=== PATIENT | male | born 1980 | race Hispanic/Latino ===

== ENCOUNTER 2019-03-02 14:49 | Emergency (ER) | payer SELFPAY ==
[2019-03-02] MEDS ORDERED: ASPIRIN 81 MG CHEWABLE TABLET ONE (15:16)
[2019-03-02 15:34] LABS: Absolute Lymphocytes (CBC) 1.9 K/uL (0.7-4.9); Basophils % 0.8 % (0-1.3); Hematocrit 47.3 % (39.6-49.0); Lymphocytes % 28.7 % (15.3-44.8); MPV 8.7 fL (7.6-11.3); Protime INR 0.97; RBC Red Blood Cell Count 5.27 M/uL (4.33-5.43)
--- NOTE | 2019-03-02 15:38 | RAD REPORT ---
EXAM DESCRIPTION: RAD - Chest Single View - 03/02/2019 3:22 pm CLINICAL HISTORY: Chest pain COMPARISON: None. TECHNIQUE: AP portable chest image was obtained 1519 hours . FINDINGS: Lungs are underinflated but clear. No failure or volume overload. Heart and vasculature ar e normal. No measurable pleural effusion and no pneumothorax. No acute bony abnormality seen. No acut e aortic findings suspected. IMPRESSION: No acute cardiopulmonary process.
[2019-03-02 15:54] LABS: ALT/SGPT 58 U/L (12-78); AST/SGOT 36 U/L (15-37); Albumin 3.9 g/dL (3.4-5.0); Alkaline Phosphatase 81 U/L (45-117); BUN Blood Urea Nitrogen 15 mg/dL (7-18); Bicarbonate 27 mmol/L (21-32); Bilirubin Direct 0.1 mg/dL (0-0.2); Bilirubin Total 0.5 mg/dL (0.2-1.0); Glucose Level 109 mg/dL (74-106); Magnesium 2.1 mg/dL (1.8-2.4); NT PRO-BNP 14 pg/mL (<125); Protein, Total 7.1 g/dL (6.4-8.2); Sodium Level 140 mmol/L (136-145); Troponin (Emerg Dept Use Only) < 0.02 ng/mL (0.0-0.045)
--- NOTE | 2019-03-02 16:11 | EDPHYS ---
Physician Documentation [facility] Name: Mike Boswell Age: 38 yrs Sex: Male : 1980 Arrival Date: 03/02/2019 Time: 14:50 Bed 2 Private MD: ED Physician Samuel Jarvis HPI: 03/02 15:22 This 38 yrs old Male presents to ER via Ambulatory with complaints of Chest jr8 Pain. 15:22 Onset: The symptoms/episode began/occurred 1.5 week(s) ago. Associated signs and jr8 symptoms: Pertinent negatives: abdominal pain, congestion, cough, headache, sore throat. Modifying factors: The patient symptoms are alleviated by nothing, the patient symptoms are aggravated by nothing. The patient has not experienced similar symptoms in the past. Pt reports left sided chest pain for the last 1.5 weeks, some days worse than other. Today pain is rated at a 6/10. Denies smoking, cardiac history, or diabetes. Historical: - Allergies: 15:06 No Known Allergies; ss - Home Meds: 15:06 None [Active]; ss - PMHx: 15:06 None; ss - PSHx: 15:06 None; ss - Immunization history:: Adult Immunizations unknown. - Social history:: Smoking status: Patient/guardian denies using tobacco. - Ebola Screening: : Patient denies exposure to infectious person Patient denies travel to an Ebola-affected area in the 21 days before illness onset. ROS: 15:23 Constitutional: Negative for fever, chills, and weight loss, Eyes: Negative for injury, jr8 pain, redness, and discharge, ENT: Negative for injury, pain, and discharge, Neck: Negative for injury, pain, and swelling, Respiratory: Negative for shortness of breath, cough, wheezing, and pleuritic chest pain, Abdomen/GI: Negative for abdominal pain, nausea, vomiting, diarrhea, and constipation, Back: Negative for injury and pain, Skin: Negative for injury, rash, and discoloration, Neuro: Negative for headache, weakness, numbness, tingling, and seizure. 15:23 Cardiovascular: Positive for chest pain. Exam: 15:24 Constitutional: This is a well developed, well nourished patient who is awake, alert, jr8 and in no acute distress. Head/Face: Normocephalic, atraumatic. Eyes: Pupils equal round and reactive to light, extra-ocular motions intact. Lids and lashes normal. Conjunctiva and sclera are non-icteric and not injected. Cornea within normal limits. Periorbital areas with no swelling, redness, or edema. ENT: Nares patent. No nasal discharge, no septal abnormalities noted. Tympanic membranes are normal and external auditory canals are clear. Oropharynx with no redness, swelling, or masses, exudates, or evidence of obstruction, uvula midline. Mucous membranes moist. Neck: Trachea midline, no thyromegaly or masses palpated, and no cervical lymphadenopathy. Supple, full range of motion without nuchal rigidity, or vertebral point tenderness. No Meningismus. Chest/axilla: Normal chest wall appearance and motion. Nontender with no deformity. No lesions are appreciated. Respiratory: Lungs have equal breath sounds bilaterally, clear to auscultation and percussion. No rales, rhonchi or wheezes noted. No increased work of breathing, no retractions or nasal flaring. Abdomen/GI: Soft, non-tender, with normal bowel sounds. No distension or tympany. No guarding or rebound. No evidence of tenderness throughout. Back: No spinal tenderness. No costovertebral tenderness. Full range of motion. Skin: Warm, dry with normal turgor. Normal color with no rashes, no lesions, and no evidence of cellulitis. 15:24 Cardiovascular: Rate: normal, Rhythm: regular, Pulses: Pulses are 3+ in right radial artery and left radial artery. Heart sounds: normal, normal S1and S2, Edema: is not appreciated. Vital Signs: 15:06 BP 127 / 80; Pulse 71; Resp 16; Pulse Ox 100% on R/A; Height 5 ft. 6 in. (167.64 cm); ss Pain 6/10; 17:00 BP 113 / 86; Pulse 66; Resp 16 S; Pulse Ox 97% on R/A; aa5 MDM: 14:58 Patient medically screened. jr8 16:08 Data reviewed: vital signs, nurses notes, lab test result(s), EKG, radiologic studies, jr8 and as a result, I will discharge patient. Data interpreted: Pulse oximetry: on room air is 100 %. Interpretation: normal. Counseling: I had a detailed discussion with the patient and/or guardian regarding: the historical points, exam findings, and any diagnostic results supporting the discharge/admit diagnosis, lab results, radiology results, the need for outpatient follow up, a electro mechanical technologist, a family practitioner. Special discussion: Based on the patient's history, exam, and Dx evaluation, there is no indication for emergent intervention or inpatient Tx. It is understood by the patient/guardian that if the Sx's persist or worsen they need to return immediately for re-evaluation. Based on the history and exam findings, there is no indication for further emergent testing or inpatient evaluation. I discussed with the patient/guardian the need to see the electro mechanical technologist for further evaluation of the symptoms. 03/02 15:11 Order name: Basic Metabolic Panel; Complete Time: 16:03/02 15:11 Order name: CBC with Diff; Complete Time: 15:42 03/02 15:11 Order name: LFT's; Complete Time: 16:03/02 15:11 Order name: Magnesium; Complete Time: 16:03/02 15:11 Order name: NT PRO-BNP; Complete Time: 16:03/02 15:11 Order name: PT-INR; Complete Time: 15:42 03/02 15:11 Order name: Troponin (emerg Dept Use Only); Complete Time: 16:03/02 15:11 Order name: XRAY Chest (1 view); Complete Time: 15:42 03/02 15:11 Order name: EKG; Complete Time: 15:12 03/02 15:11 Order name: Cardiac monitoring; Complete Time: 15:14 03/02 15:11 Order name: EKG - Nurse/Tech; Complete Time: 15:38 03/02 15:11 Order name: IV Saline Lock; Complete Time: 15:14 03/02 15:11 Order name: Labs collected and sent; Complete Time: 15:14 03/02 15:11 Order name: O2 Per Protocol; Complete Time: 15:14 03/02 15:11 Order name: O2 Sat Monitoring; Complete Time: 15: Administered Medications: 15:20 Drug: Aspirin Chewable Tablet 324 mg Route: PO; aa5 16:07 Follow up: Response: No adverse reaction aa5 16:30 Drug: fentaNYL (PF) 50 mcg Route: IVP; Site: right antecubital; aa5 16:35 Follow up: Response: No adverse reaction aa5 16:30 Drug: Zofran 4 mg Route: IVP; Site: right antecubital; aa5 16:35 Follow up: Response: No adverse reaction aa5 Disposition: 03/02/19 16:10 Discharged to Home. Impression: Chest pain, unspecified. - Condition is Stable. - Discharge Instructions: Nonspecific Chest Pain. - Medication Reconciliation Form, Thank You Letter form. - Follow up: Private Physician; When: 2 - 3 days; Reason: Recheck today's complaints, Re-evaluation by your physician. - Problem is new. - Symptoms have improved. Signatures: Dispatcher [employer] EDClarissa Lemus RN RN aa5 Daiana Raymond RN RN Lio Caceres PA PA jr8 Corrections: (The following items were deleted from the chart) 17:15 16:10 03/02/2019 16:10 Discharged to Home. Impression: Chest pain, unspecified. aa5 Condition is Stable. Forms are Medication Reconciliation Form, Thank You Letter, Antibiotic Education, Prescription Opioid Use. Follow up: Private Physician; When: 2 - 3 days; Reason: Recheck today's complaints, Re-evaluation by your physician. Problem is new. Symptoms have improved. jr8
--- NOTE | 2019-03-02 16:11 | ER ---
Nurse's Notes [facility] Name: Mike Boswell Age: 38 yrs Sex: Male : 1980 Arrival Date: 03/02/2019 Time: 14:50 Bed 2 Private MD: Diagnosis: Chest pain, unspecified Presentation: 03/02 15:03 Presenting complaint: Patient states: L sided CP that began 1.5 weeks ago. Denies ss cough/ SOB. Transition of care: patient was not received from another setting of care. Onset of symptoms was February 19, 2019. Risk Assessment: Do you want to hurt yourself or someone else? Patient reports no desire to harm self or others. Initial Sepsis Screen: Does the patient meet any 2 criteria? No. Patient's initial sepsis screen is negative. Does the patient have a suspected source of infection? No. Patient's initial sepsis screen is negative. Care prior to arrival: None. 15:03 Method Of Arrival: Ambulatory ss 15:03 Acuity: ART 3 ss Historical: - Allergies: 15:06 No Known Allergies; ss - Home Meds: 15:06 None [Active]; ss - PMHx: 15:06 None; ss - PSHx: 15:06 None; ss - Immunization history:: Adult Immunizations unknown. - Social history:: Smoking status: Patient/guardian denies using tobacco. - Ebola Screening: : Patient denies exposure to infectious person Patient denies travel to an Ebola-affected area in the 21 days before illness onset. Screenin:38 Abuse screen: Denies threats or abuse. Nutritional screening: No deficits noted. aa5 Tuberculosis screening: No symptoms or risk factors identified. Fall Risk None identified. Assessment: 15:10 General: Appears comfortable, Behavior is calm, cooperative, Pt states "the pain aa5 started with my left arm hurting and then it moved to my chest". Pt currently denies left arm pain. . Pain: Complains of pain in anterior aspect of left upper chest Pain does not radiate. Pain currently is 3 out of 10 on a pain scale. Quality of pain is described as sharp, Pain began 2-3 days ago. Is continuous. Neuro: Level of Consciousness is awake, alert, obeys commands, Oriented to person, place, time, situation. Cardiovascular: Heart tones S1 S2 present Rhythm is regular. Respiratory: Airway is patent Respiratory effort is even, unlabored, Respiratory pattern is regular, symmetrical, Breath sounds are clear bilaterally. GI: Abdomen is round Bowel sounds present X 4 quads. Abd is soft and non tender X 4 quads. Patient currently denies nausea, vomiting. : No signs and/or symptoms were reported regarding the genitourinary system. EENT: No signs and/or symptoms were reported regarding the EENT system. Derm: Skin is pink, warm \\T\\ dry. Musculoskeletal: Range of motion: intact in all extremities. 16:10 Reassessment: Pt resting in bed with eyes closed, respirations even and unlabored, skin aa5 is pink/warm/dry. 17:10 Reassessment: Patient is alert, oriented x 3, equal unlabored respirations, skin aa5 warm/dry/pink. Vital Signs: 15:06 BP 127 / 80; Pulse 71; Resp 16; Pulse Ox 100% on R/A; Height 5 ft. 6 in. (167.64 cm); ss Pain 6/10; 17:00 BP 113 / 86; Pulse 66; Resp 16 S; Pulse Ox 97% on R/A; aa5 ED Course: 14:50 Patient arrived in ED. as 14:54 Lio Caceres PA is PHCP. jr8 14:54 Samuel Jarvis MD is Attending Physician. jr8 15:06 Triage completed. ss 15:06 Clarissa France, RN is Primary Nurse. aa5 15:06 Arm band placed on right wrist. ss 15:10 Patient has correct armband on for positive identification. Placed in gown. Bed in low aa5 position. Call light in reach. Side rails up X2. site monitor on. Pulse ox on. NIBP on. 15:20 XRAY Chest (1 view) In Process Unspecified. EDMS 15:20 EKG done, by ED staff, reviewed by Lio GALVAN. aa5 15:20 Initial lab(s) drawn, by me, sent to lab. Inserted saline lock: 20 gauge in right aa5 antecubital area, using aseptic technique. Blood collected. 15:39 No provider procedures requiring assistance completed. Patient maintains SpO2 aa5 saturation greater than 95% on room air. 17:10 IV discontinued, intact, bleeding controlled, No redness/swelling at site. Pressure aa5 dressing applied. Administered Medications: 15:20 Drug: Aspirin Chewable Tablet 324 mg Route: PO; aa5 16:07 Follow up: Response: No adverse reaction aa5 16:30 Drug: fentaNYL (PF) 50 mcg Route: IVP; Site: right antecubital; aa5 16:35 Follow up: Response: No adverse reaction aa5 16:30 Drug: Zofran 4 mg Route: IVP; Site: right antecubital; aa5 16:35 Follow up: Response: No adverse reaction aa5 Outcome: 16:10 Discharge ordered by . martha 17:10 Discharged to home ambulatory, with family. aa5 17:10 Condition: stable 17:10 Discharge instructions given to patient, Instructed on discharge instructions, follow up and referral plans. Demonstrated understanding of instructions, follow-up care. 17:15 Patient left the ED. aa5 Signatures: Dispatcher [employer] EDMS Beatriz Oseguera Audri, RN RN aa5 Daiana Raymond RN RN ss Roszak, Josh, PA PA jr8 Corrections: (The following items were deleted from the chart) 16:21 16:18 General: Appears comfortable, Behavior is calm, cooperative, Pt states "the pain aa5 started with my left arm hurting and then it moved to my chest". Pt currently denies left arm pain. . aa5 16: 16:18 Pain: Complains of pain in anterior aspect of left upper chest Pain does not aa5 radiate. Pain currently is 3 out of 10 on a pain scale. Quality of pain is described as sharp, Pain began 2-3 days ago. Is continuous, aa5 16: 16:18 Neuro: Level of Consciousness is awake, alert, obeys commands, Oriented to aa5 person, place, time, situation, aa5 16: 16:18 Cardiovascular: Heart tones S1 S2 present Rhythm is regular aa5 aa5 16:21 16:18 Respiratory: Airway is patent Respiratory effort is even, unlabored, Respiratory aa5 pattern is regular, symmetrical, Breath sounds are clear bilaterally. aa5 16: 16:18 GI: Abdomen is round Bowel sounds present X 4 quads. Abd is soft and non tender X aa5 4 quads. Patient currently denies nausea, vomiting, aa5 : 16:18 : No signs and/or symptoms were reported regarding the genitourinary system. aa5aa5 16:18 EENT: No signs and/or symptoms were reported regarding the EENT system. aa5 aa5 16:18 Derm: Skin is pink, warm \\T\\ dry. aa5 5 16:18 Musculoskeletal: Range of motion: intact in all extremities, 5 5
[2019-03-02] MEDS ORDERED: ONDANSETRON 4 MG/2 ML VIAL ONE (16:27)
[2019-03-02] MEDS ORDERED: FENTANYL CITR 100 MCG/2 ML ONE (16:27)
[2019-03-02 19:15] VITALS: BP 127/80; O2SAT 100
--- NOTE | 2019-03-03 06:10 | EKG ---
Test Date: 2019-03-02 Test Time: 15:21:29 Jewel Gauger: ABRAHAM MEASUREMENT RESULTS: Intervals: Rate: 56 LA: 158 QRSD: 78 QT: 386 QTc: 372 [place]: P: 53 LA: 158 QRS: 32 T: 27 INTERPRETIVE STATEMENTS: Sinus bradycardia Otherwise normal ECG No previous ECG available for comparison Electronically Signed On 03-03-19 06:09:18 CDT by Karlo Trevino
== END 2019-03-02 17:15 | disposition home or self-care (01) ==
LOC: ER 14:49
DX: R07.9 Chest pain, unspecified (principal)
CPT/HCPCS: 36415; 71045; 80048; 80076; 83735; 83880; 84484; 85025; 85610; 93005; 96374; 96375; 99285; J2405; J3010